=== PATIENT | male | born 1960 | race Caucasian/White ===

== ENCOUNTER → 2020-07-22 | Outpatient (CLI) | payer OTHER ==
[~2020-07-22] MED LIST: AMITRIPTYLINE H10 M3 PO; CLARITIN-D 121 EACH; EFFEXOR XR150 MG; EFFEXOR XR75 MG PO; FELDENE20 MG; HYDROCODON-ACE1 EACH; HYDROCODONE-AP1 EAC6 PO; HYSINGLA ER40 MG PO; LIPITOR10 MG PO; LISINOPRIL-HCT1 EAC1 PO; MOBIC15 MG PO; NEURONTIN 300300 M1 PO; [UNRECOGNIZED DRUG - OTHER]
== END ==
LOC: SJCVCIMAG 08:34
PROVIDERS: ATTEND Internal Medicine
DX: I11.9 Hypertensive heart disease without heart failure (principal); E78.00 Pure hypercholesterolemia, unspecified

== ENCOUNTER → 2020-08-13 | Outpatient (CLI) | payer OTHER | LOC: SJCVCIMAG 08:13 | PROVIDERS: ATTEND Internal Medicine | DX: R00.2 Palpitations (principal); I48.91 Unspecified atrial fibrillation; I10 Essential (primary) hypertension; E78.5 Hyperlipidemia, unspecified; E66.9 Obesity, unspecified; Z79.899 Other long term (current) drug therapy ==

== ENCOUNTER → 2021-02-12 | Outpatient (CLI) | payer OTHER, MEDICARE ==
[~2021-02-12] MED LIST changes: +MEDROLDOSEPACK PO; +NORCO5 PO; +ZANAFLEX4 MG PO
== END ==
LOC: SJCVC 13:18
PROVIDERS: ATTEND Internal Medicine
DX: I48.91 Unspecified atrial fibrillation (principal); I10 Essential (primary) hypertension; E78.5 Hyperlipidemia, unspecified; E78.00 Pure hypercholesterolemia, unspecified; E66.9 Obesity, unspecified; G89.29 Other chronic pain; M54.5 Low back pain; Z88.8 Allergy status to other drugs, medicaments and biological substances; Z79.899 Other long term (current) drug therapy

== ENCOUNTER → 2021-08-14 | Outpatient (CLI) | payer OTHER, MEDICARE ==
[~2021-08-14] MED LIST changes: +AMITRIPTYLINE H10 M1 PO; +CEFDINIR300 MG PO; +NEURONTIN 300M300 M2 PO; +TOPROL XL25 MG PO
== END ==
LOC: SJCVC 13:07
PROVIDERS: ATTEND Internal Medicine
DX: R94.31 Abnormal electrocardiogram [ECG] [EKG] (principal); I48.91 Unspecified atrial fibrillation; E78.00 Pure hypercholesterolemia, unspecified; I10 Essential (primary) hypertension; E11.9 Type 2 diabetes mellitus without complications; M54.50 Low back pain, unspecified; Z88.5 Allergy status to narcotic agent; Z91.040 Latex allergy status; Z79.84 Long term (current) use of oral hypoglycemic drugs; Z79.899 Other long term (current) drug therapy